=== PATIENT | female | born 1955 | race Caucasian/White ===

== ENCOUNTER 2016-10-26 17:55 | Emergency (ER) | payer BC ==
[~2016-10-26] VITALS: Ht 157.5 cm; Wt 67.4 kg
[~2016-10-26 17:55] MED LIST: CETICHW4; FLNIN
[2016-10-26 17:57] VITALS: TEMP 36.7; Ht 157.5 cm; Wt 67.4 kg
[2016-10-26] MEDS ORDERED: CRS/10 PO (18:05)
[2016-10-26] MEDS ORDERED: SULF500T35 PO (18:05)
[2016-10-26] MEDS ORDERED: FOLI1TAB7 PO (18:05)
[2016-10-26] MEDS ORDERED: VORT1TAB PO (18:05)
[2016-10-26] MEDS ORDERED: LOSA100T26 PO (18:05)
[2016-10-26 18:44] LABS: BASO % 0.2 %; BASO ABS # 0.01 K/uL (0-0.2); COMPLETE YES; EOS % 0.8 %; HEMATOCRIT 44.3 % (37-47); LYMPH % 39.8 %; MEAN CELL VOLUME 98.4 fL (80-100); MEAN CORPUSCULAR HGB CONC 34.5 g/dl (32-36); MEAN PLATELET VOLUME 10.2 fL (7.4-10.4); MONO % 8.7 %; NEUT % 50.5 %; PLATELET COUNT 209 K/uL (130-400); WHITE BLOOD COUNT 5.27 K/uL (4.8-10.8)
[2016-10-26 18:45] LABS: MANUAL MICROSCOPIC REQUIRED? NO; REVIEW REQ? NO; URINE APPEARANCE CLEAR (CLEAR); URINE COLOR DK YELLOW; URINE NITRITE NEG (NEG); URINE SPECIFIC GRAVITY 1.024 (1.000-1.030); UROBILINOGEN NEG (NEG); ZZUR CULT IF INDIC CLEAN CATCH NO
--- NOTE | 2016-10-26 18:46 | EMERGENCY ROOM VISIT NOTE ---
History Report prepared by Chris: Katja Martinez Under the Supervision of: Dr. Bhavesh Phillips D.O. First contact with patient: 18:09 Chief Complaint: MENTAL HEALTH EVALUATION Stated Complaint: MHU History of Present Illness The patient is a 60 year old female who presents to the Emergency Room with complaints of worsening depression for the past 3 days. She is accompanied by her and they are visiting the area from [place]. They arrived back in [place] 3 days ago. Her reports she has been getting worse over the past few weeks, but things really worsened once they got back to [place]. Her states she has experienced issues with depression and anxiety in the past, but states "it has never been this bad before". He denies her ever being inpatient at a psychiatric facility in the past. The patient admits to a headache but states she is unsure when it started. Before they came here to visit, they saw her PCP in [place] and her states he placed her on a new medication for her depression, but the patient reports she is unsure if it has been helping. 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 A total of 10 systems reviewed and were otherwise negative. Past Medical & Surgical Medical Problems: (1) Anxiety (2) Depression (3) Hyperlipidemia (4) Hypertension (5) Rheumatoid arthritis Surgical Problems: (1) History of bilateral breast reduction surgery (2) History of hysterectomy Social History Smoking Status: Former Smoker Alcohol Use: none Drug Use: none Marital Status: Housing Status: lives with significant other Occupation Status: retired Current/Historical Medications Scheduled Folic Acid (Folvite), 1 MG PO DAILY Hctz/Losartan (Hyzaar 12.5MG/100MG), 1 TAB PO DAILY Rosuvastatin Calcium (Crestor), 10 MG PO DAILY Sulfasalazine (Sulfazine Ec), 500 MG PO BID Vortioxetine HBr (Trintellix), 1 TAB PO DAILY Allergies Coded Allergies: Penicillins (Verified Allergy, Unknown, 10/26/16) Physical Exam Vital Signs Date Time Temp Pulse Resp B/P (MAP) Pulse Ox O2 Delivery O2 Flow Rate FiO2 10/26/16 22:28 73 18 142/93 96 10/26/16 20:03 84 18 133/91 95 Room Air 10/26/16 17:57 36.7 85 20 143/92 96 Room Air Physical Exam GENERAL: Patient is awake, alert somewhat anxious but does not appear to be in pain. EYES: The conjunctivae are clear. The pupils are round and reactive. EARS, NOSE, MOUTH AND THROAT: The nose is without any evidence of any deformity. Mucous membranes are moist tongue is midline NECK: The neck is nontender and supple. RESPIRATORY: Normal respiratory effort is noted there is no evidence of wheezing rhonchi or rales CARDIOVASCULAR: Regular rate and rhythm noted there no murmurs rubs or gallops normal S1 normal S2 GASTROINTESTINAL: The abdomen is soft. Bowel sounds are present in all quadrants. Abdomen is nontender MUSCULOSKELETAL/EXTREMITIES: There is no evidence of gross deformity full range of motion is noted in the hips and shoulders SKIN: There is no obvious evidence of any rash. There are no petechiae, pallor or cyanosis noted. NEUROLOGIC: Patient is awake alert and oriented x3 strength is symmetric patellar reflexes are 2+ bilaterally PSYCHIATRIC: The patient makes very poor eye contact, currently denying any SI or HI. She is allowing her significant other to answer questions for her. Medical Decision & Procedures ER Provider Diagnostic Interpretation: CT the head was obtained in the emergency department. The report was reviewed. HEAD WITHOUT CONTRAST (CT) CT DOSE: 537.48 mGy.cm HISTORY: Headache LE TECHNIQUE: Multiaxial CT images of the head were performed without the use of intravenous contrast. Comparison: None. Findings: The paranasal sinuses and mastoid air cells are clear. The calvarium and skull base are intact. The ventricles and sulci are within normal limits. There is no mass, hematoma, midline shift, or acute infarct. Impression: No acute intracranial abnormality. The above report was generated using voice recognition software. It may contain grammatical, syntax or spelling errors. Electronically signed by: Evin Richmond M.D. 10/26/2016 7:39 PM Dictated Date/Time: 10/26/2016 7:38 PM Laboratory Results 10/26/16 18:30 Red Blood Count 4.50, Mean Corpuscular Volume 98.4, Mean Corpuscular Hemoglobin 34.0, Mean Corpuscular Hemoglobin Concent 34.5, Mean Platelet Volume 10.2, Neutrophils (%) (Auto) 50.5, Lymphocytes (%) (Auto) 39.8, Monocytes (%) (Auto) 8.7, Eosinophils (%) (Auto) 0.8, Basophils (%) (Auto) 0.2, Neutrophils # (Auto) 2.66, Lymphocytes # (Auto) 2.10, Monocytes # (Auto) 0.46, Eosinophils # (Auto) 0.04, Basophils # (Auto) 0.01 10/26/16 18:30 Test 10/26/16 18:15 10/26/16 18:30 Urine Color DK YELLOW Urine Appearance CLEAR (CLEAR) Urine pH 6.0 (4.5-7.5) Urine Specific [place] 1.024 (1.000-1.030) Urine Protein NEG (NEG) Urine Glucose (UA) NEG (NEG) Urine Ketones TRACE (NEG) Urine Occult Blood TRACE (NEG) Urine Nitrite NEG (NEG) Urine Bilirubin NEG (NEG) Urine Urobilinogen NEG (NEG) Urine Leukocyte Esterase SMALL (NEG) Urine WBC (Auto) 5-10 /hpf (0-5) Urine RBC (Auto) 5-10 /hpf (0-4) Urine Hyaline Casts (Auto) 1-5 /lpf (0-5) Urine Epithelial Cells (Auto) 10-20 /lpf (0-5) Urine Bacteria (Auto) NEG (NEG) Urine Opiates Screen NEG (NEG) Urine Methadone, Qualitative NEG (NEG) Urine Barbiturates NEG (NEG) Urine Phencyclidine (PCP) Level NEG (NEG) Ur Amphetamine/Methamphetamine NEG (NEG) MDMA (Ecstasy) Screen NEG (NEG) Urine Benzodiazepines Screen NEG (NEG) Urine Cocaine Metabolite NEG (NEG) Urine Marijuana (THC) NEG (NEG) White Blood Count 5.27 K/uL (4.8-10.8) Red Blood Count 4.50 M/uL (4.2-5.4) Hemoglobin 15.3 g/dL (12.0-16.0) Hematocrit 44.3 % (37-47) Mean Corpuscular Volume 98.4 fL (80-100) Mean Corpuscular Hemoglobin 34.0 pg (25-34) Mean Corpuscular Hemoglobin Concent 34.5 g/dl (32-36) Platelet Count 209 K/uL (130-400) Mean Platelet Volume 10.2 fL (7.4-10.4) Neutrophils (%) (Auto) 50.5 % Lymphocytes (%) (Auto) 39.8 % Monocytes (%) (Auto) 8.7 % Eosinophils (%) (Auto) 0.8 % Basophils (%) (Auto) 0.2 % Neutrophils # (Auto) 2.66 K/uL (1.4-6.5) Lymphocytes # (Auto) 2.10 K/uL (1.2-3.4) Monocytes # (Auto) 0.46 K/uL (0.11-0.59) Eosinophils # (Auto) 0.04 K/uL (0-0.5) Basophils # (Auto) 0.01 K/uL (0-0.2) RDW Standard Deviation 48.3 fL (36.4-46.3) RDW Coefficient of Variation 13.4 % (11.5-14.5) Immature Granulocyte % (Auto) 0.0 % Immature Granulocyte # (Auto) 0.00 K/uL (0.00-0.02) Anion Gap 5.0 mmol/L (3-11) Est Creatinine Clear Calc Drug Dose 62.6 ml/min Estimated GFR () 85.1 Estimated GFR (Non- 73.4 BUN/Creatinine Ratio 14.2 (10-20) Calcium Level 9.3 mg/dl (8.5-10.1) Total Bilirubin 0.3 mg/dl (0.2-1) Aspartate Amino Transf (AST/SGOT) 18 U/L (15-37) Alanine Aminotransferase (ALT/SGPT) 27 U/L (12-78) Alkaline Phosphatase 72 U/L (45-117) Total Protein 7.5 gm/dl (6.4-8.2) Albumin 3.6 gm/dl (3.4-5.0) Globulin 3.9 gm/dl (2.5-4.0) Albumin/Globulin Ratio 0.9 (0.9-2) Thyroid Stimulating Hormone (TSH) 2.140 uIu/ml (0.300-4.500) Salicylates Level < 1.7 mg/dl (2.8-20) Acetaminophen Level < 2 ug/ml (10-30) Ethyl Alcohol mg/dL < 3.0 mg/dl (0-3) Laboratory results per my review. ED Course 1836: The patient was evaluated in room A5. A complete history and physical examination were performed. 2199: I reevaluated the patient. She is feeling well and resting comfortably. I discussed her results and discharge instructions and she verbalized complete understanding and agreement. Medical Decision Medication Reconciliation: I attest that I have personally reviewed the patient' s current medications list. Patient was found to have a slightly elevated blood pressure due to circumstances. I do not believe that the patient requires hypertension monitoring. Prior records/ancillary studies reviewed. Triage Nursing notes reviewed. The patient's history was concerning for possible psychiatric disturbance. Differential diagnosis: Etiologies such as mood disorder, infection, hypoglycemia, electrolyte abnormalities, cardiac sources, intracerebral event, toxicologic, neurologic, as well as others were entertained. The patient is a 60-year-old female who presented to the emergency department for a mental health evaluation with her significant other. The patient had very significant symptoms but did not appear to have any suicidal or homicidal ideations. She's been treated for this in the past and was started on medications by her primary care physician. The patient was medically cleared in the emergency department. She was evaluated by the emergency Department mental family independence case manager and at this time she does not meet specific criteria for involuntary commitment. We discussed this condition with her significant other. At this time he was concerned because he thought there could be a medical cause for the patient's presentation today. The patient was encouraged to continue all medications as prescribed and follow-up with her primary therapist as soon as possible. She was also encouraged to call crisis or return to emergency department immediately if symptoms change worsen or the need arises. Impression Primary Impression: Depression Scribe Attestation The scribe's documentation has been prepared under my direction and personally reviewed by me in its entirety. I confirm that the note above accurately reflects all work, treatment, procedures, and medical decision making performed by me. Departure Information Dispostion Home / Self-Care Referrals No Doctor, Assigned (PCP) Forms HOME CARE DOCUMENTATION FORM, IMPORTANT VISIT INFORMATION Patient Instructions ED Depression, My [facility] Additional Instructions Follow-up family doctor soon as possible. Continue all medications as prescribed. Call crisis or return to the emergency department immediately if symptoms change worsen or the need arises. Problem Qualifiers Primary Impression: Depression Depression Type: unspecified Qualified Codes: F32.9 - Major depressive disorder, single episode, unspecified
[2016-10-26 18:47] LABS: URINE BILIRUBIN NEG (NEG)
[2016-10-26 18:51] LABS: BENZODIAZEPINE, URINE NEG (NEG); COCAINE,URINE NEG (NEG); PHENCYCLIDINE, URINE NEG (NEG)
[2016-10-26 19:05] LABS: BUN/CREATININE RATIO 14.2 (10-20); CALCIUM 9.3 mg/dl (8.5-10.1); CREATININE 0.86 mg/dl (0.60-1.20); POTASSIUM 3.8 mmol/L (3.5-5.1)
[2016-10-26 19:08] LABS: ACETAMINOPHEN < 2 ug/ml (10-30)
[2016-10-26 19:16] LABS: ALB/GLOB RATIO 0.9 (0.9-2); THYROID STIMULATING HORMONE 2.14 uIu/ml (0.300-4.500)
--- NOTE | 2016-10-26 19:40 | DIAGNOSTIC IMAGING REPORT ---
HEAD WITHOUT CONTRAST (CT) CT DOSE: 537.48 mGy.cm HISTORY: Headache LE TECHNIQUE: Multiaxial CT images of the head were performed without the use of intravenous contrast. Comparison: None. Findings: The paranasal sinuses and mastoid air cells are clear. The calvarium and skull base are intact. The ventricles and sulci are within normal limits. There is no mass, hematoma, midline shift, or acute infarct. Impression: No acute intracranial abnormality. The above report was generated using voice recognition software. It may contain grammatical, syntax or spelling errors. Electronically signed by: Evin Richmond M.D. 10/26/2016 7:39 PM Dictated Date/Time: 10/26/2016 7:38 PM
[2016-10-26 22:28] VITALS: BP 142/93; PULSE 73; O2SAT 96
== END 2016-10-26 22:29 | disposition home or self-care (01) ==
LOC: C.EDB 17:56
DX: F32.9 Major depressive disorder, single episode, unspecified (principal); R51 Headache; F41.9 Anxiety disorder, unspecified; E78.5 Hyperlipidemia, unspecified; I10 Essential (primary) hypertension; M06.9 Rheumatoid arthritis, unspecified; Z90.710 Acquired absence of both cervix and uterus; Z87.891 Personal history of nicotine dependence